=== PATIENT | female | born 1960 | race African-American/Black ===

== ENCOUNTER 2022-03-07 20:48 | Inpatient (IN) | payer MEDICAID ==
[~2022-03-07] VITALS: Ht 175.3 cm; Wt 173.3 kg
[2022-03-07 22:02] LABS: BASOPHILS % 0.6 % (0.0-2.0); EOSINOPHILS % 0.3 % (0.0-5.0); HEMATOCRIT. 33.6 % (36.0-48.0); HEMOGLOBIN. 10.6 g/dL (12.0-16.0); LYMPHOCYTES % 11.9 % (20.0-50.0); MEAN CORPUSCULAR HEMOGLOBIN 31.2 pg (28.0-32.0); MEAN CORPUSCULAR VOLUME 98.8 fL (81.0-99.0); MEAN PLATELET VOLUME 9.6 fl (7.4-10.4); MONOCYTES % 5.2 % (2.0-8.0); PLATELET 293 x1000/uL (130-400); RED CELL DISTRIBUTION WIDTH 15.8 % (11.6-14.6)
[2022-03-07 22:21] LABS: CHLORIDE 107 mEq/L (98-107)
[2022-03-07] MEDS ORDERED: POTASSIUM CHLORIDE 20MEQ TABLET SR PO NR (23:00)
[2022-03-10 01:10] LABS: BASOPHILS % 0.4 % (0.0-2.0); EOSINOPHILS % 2.1 % (0.0-5.0); HEMATOCRIT. 29.5 % (36.0-48.0); HEMOGLOBIN. 9.5 g/dL (12.0-16.0); LYMPHOCYTES % 18.1 % (20.0-50.0); MEAN CORPUSCULAR HEMOGLOBIN 31.2 pg (28.0-32.0); MEAN CORPUSCULAR VOLUME 97.4 fL (81.0-99.0); MEAN PLATELET VOLUME 9.1 fl (7.4-10.4); MONOCYTES % 7.1 % (2.0-8.0); NEUTROPHILS % 72.3 % (40.0-76.0); PLATELET 277 x1000/uL (130-400); RED BLOOD CELL COUNT 3.03 mill/uL (4.2-5.4); RED CELL DISTRIBUTION WIDTH 15.7 % (11.6-14.6)
[2022-03-10 01:16] LABS: CHLORIDE 104 mEq/L (98-107)
[2022-03-10 10:00] VITALS: BP 110/46
[2022-03-10 12:00] VITALS: BP 132/69
[2022-03-10] MEDS: PANTOPRAZOLE SODIUM 40 MG/VIAL IV SCH ×3 (12:00→21:22)
[2022-03-10] MEDS ORDERED: CLONIDINE 0.1MG TABLET PO PRN (12:30)
[2022-03-10] MEDS ORDERED: ONDANSETRON HCL 4MG/2ML INJ IV PRN (12:30)
[2022-03-10 13:37] VITALS: BP 110/46
[2022-03-10 16:00] VITALS: BP 106/50
[2022-03-10 18:22] LABS: HEMATOCRIT 27.1 % (36.0-48.0); HEMOGLOBIN 8.7 g/dL (12.0-16.0)
[2022-03-10 18:34] LABS: TOTAL IRON BINDING CAPACITY 316 ug/dL (250-450)
[2022-03-10 19:01] LABS: FOLIC ACID (FOLATE) SERUM 11.3 ng/mL (>5.38)
[2022-03-10 20:00] VITALS: BP 114/64
[2022-03-11] VITALS: BP 113/63
[2022-03-11 01:07] LABS: HEMATOCRIT 28.6 % (36.0-48.0); HEMOGLOBIN 9.4 g/dL (12.0-16.0)
[2022-03-11 04:00] VITALS: BP 113/63
[2022-03-11 08:00] VITALS: BP 127/63
[2022-03-11 08:12] LABS: BASOPHILS % 0.3 % (0.0-2.0); EOSINOPHILS % 3.3 % (0.0-5.0); HEMATOCRIT. 27.5 % (36.0-48.0); HEMOGLOBIN. 8.9 g/dL (12.0-16.0); LYMPHOCYTES % 23.7 % (20.0-50.0); MEAN CORPUSCULAR HEMOGLOBIN 32.1 pg (28.0-32.0); MEAN CORPUSCULAR VOLUME 98.5 fL (81.0-99.0); MEAN PLATELET VOLUME 9.2 fl (7.4-10.4); MONOCYTES % 8.6 % (2.0-8.0); NEUTROPHILS % 64.1 % (40.0-76.0); PLATELET 263 x1000/uL (130-400); RED BLOOD CELL COUNT 2.79 mill/uL (4.2-5.4); RED CELL DISTRIBUTION WIDTH 15.8 % (11.6-14.6)
[2022-03-11 08:16] LABS: CHLORIDE 106 mEq/L (98-107)
[2022-03-11] MEDS: PANTOPRAZOLE SODIUM 40 MG/VIAL IV SCH ×2 (08:45→21:00)
[2022-03-11 12:00] VITALS: BP 124/66
[2022-03-11] MEDS ORDERED: POTASSIUM CHLORIDE 20MEQ TABLET SR PO SCH (13:00)
[2022-03-11] MEDS: IRON SUCROSE COMPLEX 100 MG/5 ML ML IV SCH (13:00)
[2022-03-11] MEDS ORDERED: METF-414 MT (13:40)
[2022-03-11] MEDS ORDERED: FERR325T6 MT (13:40)
[2022-03-11 16:00] VITALS: BP 100/43
[2022-03-11 20:00] VITALS: BP 134/55
[2022-03-11 21:11] LABS: HEMATOCRIT 27.9 % (36.0-48.0); HEMOGLOBIN 8.9 g/dL (12.0-16.0)
[2022-03-12] VITALS: BP 121/53
[2022-03-12 04:00] VITALS: BP 111/60
[2022-03-12 08:00] VITALS: BP 119/56
[2022-03-12 08:19] LABS: BASOPHILS % 0.4 % (0.0-2.0); EOSINOPHILS % 3.3 % (0.0-5.0); LYMPHOCYTES % 30.1 % (20.0-50.0); MEAN CORPUSCULAR HEMOGLOBIN 31.8 pg (28.0-32.0); MEAN CORPUSCULAR VOLUME 98.6 fL (81.0-99.0); MEAN PLATELET VOLUME 9.4 fl (7.4-10.4); MONOCYTES % 8.2 % (2.0-8.0); PLATELET 273 x1000/uL (130-400); RED BLOOD CELL COUNT 2.84 mill/uL (4.2-5.4); RED CELL DISTRIBUTION WIDTH 15.6 % (11.6-14.6)
[2022-03-12 08:32] LABS: CHLORIDE 106 mEq/L (98-107)
[2022-03-12 12:00] VITALS: BP 114/54
[2022-03-12] MEDS: IRON SUCROSE COMPLEX 100 MG/5 ML ML IV SCH (12:17)
[2022-03-12] MEDS: PANTOPRAZOLE SODIUM 40 MG/VIAL IV SCH ×2 (12:17→21:41)
[2022-03-12 16:00] VITALS: BP 118/52
[2022-03-12 20:00] VITALS: BP 147/60
[2022-03-13] VITALS: BP 123/70
[2022-03-13 04:00] VITALS: BP 120/57
[2022-03-13 06:45] LABS: BASOPHILS % 0.3 % (0.0-2.0); EOSINOPHILS % 3.7 % (0.0-5.0); HEMATOCRIT. 27.8 % (36.0-48.0); MEAN CORPUSCULAR HEMOGLOBIN 31.7 pg (28.0-32.0); MEAN CORPUSCULAR VOLUME 97.8 fL (81.0-99.0); MEAN PLATELET VOLUME 8.9 fl (7.4-10.4); PLATELET 263 x1000/uL (130-400); RED BLOOD CELL COUNT 2.84 mill/uL (4.2-5.4); RED CELL DISTRIBUTION WIDTH 15.8 % (11.6-14.6)
[2022-03-13 07:17] LABS: CHLORIDE 105 mEq/L (98-107)
[2022-03-13 08:00] VITALS: BP 138/67
[2022-03-13] MEDS: CYANOCOBALAMIN 100MCG TABLET PO SCH (10:34)
[2022-03-13] MEDS: PANTOPRAZOLE SODIUM 40 MG/VIAL IV SCH ×2 (10:34→21:50)
[2022-03-13] MEDS: IRON SUCROSE COMPLEX 100 MG/5 ML ML IV SCH (10:34)
[2022-03-13 12:00] VITALS: BP 129/58
[2022-03-13 16:00] VITALS: BP 124/53
[2022-03-13] MEDS ORDERED: POTASSIUM CHLORIDE 20MEQ TABLET SR PO NR ×2 (18:30→20:30)
[2022-03-13 20:00] VITALS: BP 121/50
[2022-03-14] VITALS: BP 123/57
[2022-03-14 04:00] VITALS: BP 128/58
[2022-03-14 06:16] LABS: BASOPHILS % 0.4 % (0.0-2.0); EOSINOPHILS % 3.6 % (0.0-5.0); HEMATOCRIT. 27.2 % (36.0-48.0); HEMOGLOBIN. 8.9 g/dL (12.0-16.0); LYMPHOCYTES % 26.3 % (20.0-50.0); MEAN CORPUSCULAR HEMOGLOBIN 32.2 pg (28.0-32.0); MEAN CORPUSCULAR VOLUME 98.3 fL (81.0-99.0); MEAN PLATELET VOLUME 8.9 fl (7.4-10.4); MONOCYTES % 10.7 % (2.0-8.0); PLATELET 273 x1000/uL (130-400); RED BLOOD CELL COUNT 2.77 mill/uL (4.2-5.4); RED CELL DISTRIBUTION WIDTH 16.2 % (11.6-14.6)
[2022-03-14 06:35] LABS: CHLORIDE 108 mEq/L (98-107)
[2022-03-14 08:00] VITALS: BP 102/51
[2022-03-14] MEDS: CYANOCOBALAMIN 100MCG TABLET PO SCH (09:33)
[2022-03-14] MEDS: ASCORBIC ACID 500 MG TABLET PO SCH ×2 (09:33→18:13)
[2022-03-14] MEDS: FERROUS SULFATE 325MG TABLET PO SCH ×2 (09:33→18:13)
[2022-03-14] MEDS: PANTOPRAZOLE SODIUM 40 MG/VIAL IV SCH ×2 (09:33→22:05)
[2022-03-14 12:00] VITALS: BP 104/55
[2022-03-14 16:00] VITALS: BP 120/45
[2022-03-14] MEDS: POTASSIUM CHLORIDE 20MEQ TABLET SR PO SCH (18:13)
[2022-03-14 20:00] VITALS: BP 105/49
[2022-03-15] VITALS: BP 110/52
[2022-03-15] MEDS: ACETAMINOPHEN 325MG TABLET PO PRN (02:27)
[2022-03-15 04:00] VITALS: BP 112/60
[2022-03-15 07:47] LABS: CHLORIDE 108 mEq/L (98-107)
[2022-03-15 07:50] LABS: BASOPHILS % 0.4 % (0.0-2.0); EOSINOPHILS % 3.4 % (0.0-5.0); HEMATOCRIT. 28.2 % (36.0-48.0); HEMOGLOBIN. 9.2 g/dL (12.0-16.0); LYMPHOCYTES % 26.5 % (20.0-50.0); MEAN CORPUSCULAR HEMOGLOBIN 32.3 pg (28.0-32.0); MEAN CORPUSCULAR VOLUME 98.8 fL (81.0-99.0); MEAN PLATELET VOLUME 8.9 fl (7.4-10.4); MONOCYTES % 10.9 % (2.0-8.0); NEUTROPHILS % 58.8 % (40.0-76.0); PLATELET 282 x1000/uL (130-400); RED BLOOD CELL COUNT 2.85 mill/uL (4.2-5.4); RED CELL DISTRIBUTION WIDTH 16.2 % (11.6-14.6)
[2022-03-15] MEDS: ASCORBIC ACID 500 MG TABLET PO SCH ×2 (07:50→17:42)
[2022-03-15] MEDS: FERROUS SULFATE 325MG TABLET PO SCH ×2 (07:50→17:42)
[2022-03-15] MEDS: CYANOCOBALAMIN 100MCG TABLET PO SCH (07:50)
[2022-03-15 07:58] VITALS: BP 119/53
[2022-03-15] MEDS: POTASSIUM CHLORIDE 20MEQ TABLET SR PO SCH (09:00)
[2022-03-15] MEDS: PANTOPRAZOLE SODIUM 40 MG/VIAL IV SCH (09:00)
[2022-03-15 12:00] VITALS: BP 104/41
[2022-03-15 16:00] VITALS: BP 112/50
[2022-03-15 20:00] VITALS: BP 119/60
[2022-03-16] VITALS: BP 116/58
[2022-03-16 04:00] VITALS: BP 118/60
[2022-03-16] MEDS: PANTOPRAZOLE SODIUM 40 MG/VIAL IV SCH ×3 (07:08→23:18)
[2022-03-16 07:27] LABS: BASOPHILS % 0.3 % (0.0-2.0); EOSINOPHILS % 3.4 % (0.0-5.0); HEMOGLOBIN. 9.1 g/dL (12.0-16.0); LYMPHOCYTES % 28.3 % (20.0-50.0); MEAN CORPUSCULAR HEMOGLOBIN 32.4 pg (28.0-32.0); MEAN CORPUSCULAR VOLUME 99.9 fL (81.0-99.0); MEAN PLATELET VOLUME 8.7 fl (7.4-10.4); MONOCYTES % 12.4 % (2.0-8.0); NEUTROPHILS % 55.6 % (40.0-76.0); PLATELET 253 x1000/uL (130-400); RED BLOOD CELL COUNT 2.81 mill/uL (4.2-5.4); RED CELL DISTRIBUTION WIDTH 16.2 % (11.6-14.6)
[2022-03-16 08:00] VITALS: BP 117/60
[2022-03-16] MEDS: POTASSIUM CHLORIDE 20MEQ TABLET SR PO SCH (08:15)
[2022-03-16] MEDS: FERROUS SULFATE 325MG TABLET PO SCH (08:15)
[2022-03-16] MEDS: ASCORBIC ACID 500 MG TABLET PO SCH (08:15)
[2022-03-16] MEDS: CYANOCOBALAMIN 100MCG TABLET PO SCH (08:15)
[2022-03-16 08:42] LABS: CHLORIDE 106 mEq/L (98-107)
[2022-03-16] MEDS ORDERED: POTASSIUM CHLORIDE 20MEQ TABLET SR PO SCH (10:30)
[2022-03-16 12:00] VITALS: BP 116/58
[2022-03-16 16:00] VITALS: BP 111/52
[2022-03-16 20:00] VITALS: BP 134/58
[2022-03-16] MEDS: ACETAMINOPHEN 325MG TABLET PO PRN (23:18)
[2022-03-17] VITALS (9 sets, daily range): BP systolic 101–132; BP diastolic 52–73
[2022-03-17 07:14] LABS: BASOPHILS % 0.3 % (0.0-2.0); HEMOGLOBIN. 9.1 g/dL (12.0-16.0); LYMPHOCYTES % 26.3 % (20.0-50.0); MEAN CORPUSCULAR HEMOGLOBIN 32.3 pg (28.0-32.0); MEAN CORPUSCULAR VOLUME 99.7 fL (81.0-99.0); MEAN PLATELET VOLUME 8.9 fl (7.4-10.4); MONOCYTES % 12.3 % (2.0-8.0); NEUTROPHILS % 57.1 % (40.0-76.0); PLATELET 271 x1000/uL (130-400); RED BLOOD CELL COUNT 2.81 mill/uL (4.2-5.4); RED CELL DISTRIBUTION WIDTH 16.7 % (11.6-14.6)
[2022-03-17 08:00] LABS: CHLORIDE 108 mEq/L (98-107)
[2022-03-17] MEDS: PANTOPRAZOLE SODIUM 40 MG/VIAL IV SCH ×2 (08:07→19:57)
[2022-03-17] MEDS: POTASSIUM CHLORIDE 20MEQ TABLET SR PO SCH (08:08)
[2022-03-17] MEDS: FERROUS SULFATE 325MG TABLET PO SCH ×2 (08:08→17:33)
[2022-03-17] MEDS: ASCORBIC ACID 500 MG TABLET PO SCH ×2 (08:08→17:33)
[2022-03-17] MEDS: CYANOCOBALAMIN 100MCG TABLET PO SCH (08:08)
[2022-03-18] VITALS: BP 108/52
[2022-03-18 04:00] VITALS: BP 117/58
[2022-03-18 08:00] VITALS: BP 99/43
[2022-03-18] MEDS: ASCORBIC ACID 500 MG TABLET PO SCH (08:52)
[2022-03-18] MEDS: POTASSIUM CHLORIDE 20MEQ TABLET SR PO SCH (08:52)
[2022-03-18] MEDS: CYANOCOBALAMIN 100MCG TABLET PO SCH (08:52)
[2022-03-18] MEDS: FERROUS SULFATE 325MG TABLET PO SCH (08:52)
[2022-03-18 09:10] LABS: CHLORIDE 106 mEq/L (98-107)
[2022-03-18 09:13] LABS: BASOPHILS % 0.4 % (0.0-2.0); EOSINOPHILS % 3.6 % (0.0-5.0); HEMOGLOBIN. 9.3 g/dL (12.0-16.0); LYMPHOCYTES % 28.2 % (20.0-50.0); MEAN PLATELET VOLUME 8.9 fl (7.4-10.4); MONOCYTES % 13.8 % (2.0-8.0); PLATELET 258 x1000/uL (130-400); RED CELL DISTRIBUTION WIDTH 17.3 % (11.6-14.6)
[2022-03-18 12:00] VITALS: BP 108/51
[2022-03-18 16:00] VITALS: BP 92/51
== END 2022-03-18 16:25 | disposition home or self-care (01) | DRG 254 ==
LOC: ER 20:48 → 6EST 03-10 05:53 → ENRESERV 03-10 07:23
PROVIDERS: ADMIT Internal Medicine; ATTEND Internal Medicine
DX: K64.9 Unspecified hemorrhoids (principal); R65.10 Systemic inflammatory response syndrome (SIRS) of non-infectious origin without acute organ dysfunction; K76.0 Fatty (change of) liver, not elsewhere classified; R16.0 Hepatomegaly, not elsewhere classified; D62 Acute posthemorrhagic anemia; D50.9 Iron deficiency anemia, unspecified; E11.9 Type 2 diabetes mellitus without complications; E87.6 Hypokalemia; Z88.3 Allergy status to other anti-infective agents; Z79.84 Long term (current) use of oral hypoglycemic drugs; Z79.899 Other long term (current) drug therapy; Z90.710 Acquired absence of both cervix and uterus
CPT/HCPCS: 36415; 71045; 76700; 80048; 80053; 82607; 82728; 82746; 82962; 83036; 83540; 83550; 83735; 85014; 85018; 85025; 85044; 86850; 86900; 93005; 97162; 99285; C9113